=== PATIENT | female | born 1985 | race Caucasian/White ===

== ENCOUNTER 2019-11-25 09:18 | Emergency (ER) | payer OTHER, SELFPAY ==
[2019-11-25 09:22] VITALS: BP 149/83; PULSE 112; RESP 17; TEMP 36.7; O2SAT 98; BMI 43.9
--- NOTE | 2019-11-25 09:42 | EKG12_ITS ---
Test Reason : PHYSCH Blood Pressure : / mmHG Vent. Rate : 089 BPM Atrial Rate : 089 BPM P-R Int : 144 ms QRS Dur : 090 ms QT Int : 362 ms P-R-T Axes : 025 048 027 degrees QTc Int : 440 ms Normal sinus rhythm Normal ECG Confirmed by SANDRA SURESH, [place] ([id number]), associate editor BRIAN CHAIDEZ ([id number]) on 11/27/2019 11:10:39 AM Referred By: MIKO Confirmed By:ITALO FLORES MD
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
--- NOTE | 2019-11-25 09:44 | NURSING ---
NO OLD EKGS
[2019-11-25] MEDS: hydrOXYzine PAM 25 MG Capsule 50 MG PO (09:57)
--- NOTE | 2019-11-25 10:16 | RAD_ITS ---
STUDY: X-RAY CHEST REASON FOR EXAM: Female, 34 years old. PATIENT REPORTS SUICIDAL IDEATIONS. -- CHEST PAIN -- HX ASTHMA TECHNIQUE: Single AP portable view of the chest. COMPARISON: None. FINDINGS: Azygos lobe. Normal variant. The lungs are clear and expanded. There is no demonstrated pleural abnormality. Normal size heart. Normal mediastinum and kathy. Normal visualized pulmonary arteries. Normal visualized aortic arch and descending thoracic aorta. Normal visualized thoracic spine. Normal visualized ribs, clavicles, and shoulders. There is no demonstrated abnormality of the visualized soft tissue structures of the upper abdomen. RAD/Chest 1 View (Portable) IMPRESSION: Normal x-ray examination of the chest. Electronically Signed: Kishor Donohue, at 10:43 EDT , Service support ,
[2019-11-25 10:19] LABS: Absolute Neutrophil Count 5.8 X10^3/uL (2.0-7.7); Basophil# 0.05 X10^3/uL; Basophil% 0.6 % (0-1); Eosinophils% 1.1 % (0-5); Hematocrit 42.9 % (37-47); Hemoglobin 13.9 g/dL (12.0-15.0); Lymphocyte % 24.1 % (19-41); Mean Corp Hgb Conc 32.4 g/dL (32-36); Mean Corpuscular Hgb 28.5 pg (27.0-32.0); Mean Corpuscular Volume 88.1 fL (81-99); Mean Platelet Vol. 8.6 fl (6.2-12.0); Monocyte# 0.69 X10^3/uL; Monocyte% 7.9 % (0-10); NRBC Flagged by Analyzer 0 % (0-5); Neutrophil # 5.76 X10^3/uL (2.7-7.7); Platelet Count 310 K/mm3 (150-450); RBC Distribution Width CV 13.3 % (11.6-14.6); RBC Distribution Width SD 43.1 fl (35.1-43.9); Red Blood Count 4.87 M/mm3 (4.2-5.4); White Blood Count 8.7 K/mm3 (4.4-11.0)
[2019-11-25 10:27] LABS: Internal QC Validated? YES +Cl - CLEAR BKGD; Pregnancy, Serum, hCG Quali. NEGATIVE Negative
[2019-11-25 10:41] LABS: Alcohol, Blood (Medical)-Serum < 3.0 mg/dL; Anion Gap 8 (5-15); BUN 14 mg/dL (7-18); BUN/Creat Ratio 14.2 RATIO (10-20); Calcium,Total 9.1 mg/dL (8.5-10.1); Chloride 107 mmol/L (98-107); Creatinine, Serum 0.99 mg/dL (0.55-1.02); EST Glomerular Filtration Rate 68 mL/min (>60); Est Glom Filt Rate - Afr Amer 82 mL/min (>60); Glucose 109 mg/dL (74-106); Potassium 3.9 mmol/L (3.5-5.1); Sodium Level 138 mmol/L (136-145); Thyroid Stim Hormone (TSH) 1.96 uIU/mL (0.358-3.74)
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
--- NOTE | 2019-11-25 11:09 | ED.RN ---
dennys young in to see pt and evaluate.
[2019-11-25] MEDS: Acetaminophen 500 MG Tablet 1000 MG PO (11:47)
[2019-11-25 12:21] LABS: Amphetamine Urine VISTA NEGATIVE (<1000 ng/mL); Barbiturate Urine VISTA NEGATIVE (< 200 ng/mL); Benzodiazepine Urine VISTA NEGATIVE (< 200 ng/mL); Cocaine Urine VISTA NEGATIVE (< 300 ng/mL); Ecstacy Urine VISTA POSITIVE (< 500 ng/mL); Methadone Urine VISTA NEGATIVE (< 300 ng/mL); PCP Urine VISTA NEGATIVE (< 25 ng/mL); THC Urine VISTA NEGATIVE (< 50 ng/mL); Vista UDS pH Range 6
--- NOTE | 2019-11-25 12:27 | CM.ED ---
SOCIAL WORK REFERRAL FAXED AND CALLED TO [facility].
--- NOTE | 2019-11-25 13:15 | CM.ED ---
SOCIAL WORK PATIENT ACCEPTED TO [facility] BY DR. RODRIGUEZ TO [facility]. NURSE TO CALL REPORT TO . PATIENT, , AND STAFF REGGIE. Afsaneh RAMIREZ MSW, LOBSTERMAN.
--- NOTE | 2019-11-25 13:56 | NURSING ---
ACCEPTED AT [facility]
--- NOTE | 2019-11-25 14:11 | NURSING ---
CALLED [facility], ETA IS 90 MIN
== END 2019-11-25 16:30 ==
PROVIDERS: Emergency Provider Emergency Medicine; PCP Internal Medicine
DX: R45.851 Suicidal ideations (principal); F41.9 Anxiety disorder, unspecified; Z91.5 Personal history of self-harm
CPT/HCPCS: 71045; 80048; 80307; 80320; 84443; 84703; 85025; 93005; 99285; G0480